=== PATIENT | male | born 1985 | race Caucasian/White ===

== ENCOUNTER 2017-08-26 00:55 | Emergency (ER) | payer OTHER, SELFPAY ==
[2017-08-26 01:07] VITALS: BP 124/74; PULSE 121; RESP 20; TEMP 37.1; O2SAT 98; BMI 21.7
[2017-08-26 01:41] LABS: Basophils # 0.1 K/mm3 (0-0.2); Basophils % 0.4 % (0.1-2.0); Eosinophils # 0.2 K/mm3 (0.0-0.4); Eosinophils % 1.6 % (0.1-12.0); Hematocrit 50.1 % (42.0-52.0); Hemoglobin 17.5 g/dL (14.1-18.0); Lymphocytes # 0.7 K/mm3 (0.7-4.5); Lymphocytes % 4.6 K/mm3 (10-50); Mean Corpuscular Hemoglobin 30.2 pg (27.0-31.2); Mean Corpuscular Volume 86.2 fl (80-94); Mean Platelet Volume 8.1 fl (7.4-10.4); Monocytes # 0.9 K/mm3 (0.1-1.0); Monocytes % 6.1 % (1.7-9.3); Neutrophils # 12.6 K/mm3 (1.8-7.8); Neutrophils % 87.4 % (37.0-80.0); Platelet Count 296 K/mm3 (142-424); Red Blood Count 5.81 M/mm3 (4.60-6.20); Red Cell Distribution Width 12.7 % (11.5-17.5); White Blood Count 14.4 K/mm3 (4.8-10.8)
[2017-08-26 01:42] LABS: MANUAL DIFFERENTIAL MANUAL DIFFERENTIAL (MANUAL DIFF)
--- NOTE | 2017-08-26 01:46 | HMH.EDNVD ---
ED Disposition Clinical Impression: Gastroenteritis, Dehydration Disposition: Home, Self-Care Condition on Discharge: Good Instructions: DI for Dehydration -- Adult, DI for Viral Gastroenteritis -- Adult Additional Instructions: Please drink plenty of fluids, find attached prescription for Zofran to be taken as needed for nausea, also take [id number] Imodium, as needed for diarrhea. Prescriptions: Ondansetron [Zofran 4mg ODT] 4 mg PO QIDP PRN #28 tab.rapdis PRN Reason: Nausea Time of Disposition: 01:46 - Critical Care Critical Care Time: No Attestation: On 08/26/17, the high probability of a clinically significant, sudden or life threatening deterioration of the following system(s) required my full and direct attention, intervention and personal management. The time I documented below is in addition to time spent performing reported procedures but includes the following listed in this critical care notation. Medical Decision Making - Medical Records Medical records reviewed: Yes: I reviewed the patient's medical records. Vital Signs: 08/26/17 01:07 08/26/17 03:01 Temperature 98.8 F 100.2 F H Temperature Source Oral Oral Pulse Rate 116 H Pulse Rate [Right Brachial] 121 H Respiratory Rate 20 18 Blood Pressure 102/61 Blood Pressure [Right Arm] 124/74 Blood Pressure Mean [Right Arm] 90 Blood Pressure Source Automatic Cuff Blood Pressure Source [Right Arm] Automatic Cuff Blood Pressure Position Supine Blood Pressure Position [Right Arm] Supine 02 Sat by Pulse Oximetry 98 Oxygen Delivery Method Room Air Room Air - Lab Data Lab results reviewed: Yes: I reviewed the patient's lab results. Lab Results 08/26/17 01:20: WBC 14.4 H, RBC 5.81, Hgb 17.5, Hct 50.1, MCV 86.2, MCH 30.2, MCHC 35.0, RDW 12.7, Plt Count 296, MPV 8.1, Neut % (Auto) 87.4 H, Lymph % (Auto) 4.6 L, [place] % (Auto) 6.1, Eos % (Auto) 1.6, Baso % (Auto) 0.4, Neut # (Auto) 12.6 H, Lymph # (Auto) 0.7, [place] # (Auto) 0.9, Eos # (Auto) 0.2, Baso # (Auto) 0.1, Total Counted 100, Neutrophils % (Manual) 88 H, Lymphocytes % (Manual) 8 L, Monocytes % (Manual) 4, Platelet Estimate Normal, RBC Morphology Normal 08/26/17 01:20: Sodium 142, Potassium 3.9, Chloride 104, Carbon Dioxide 26, Anion Gap 15.9 H, BUN 14, Creatinine 1.35 H, Estimated Creat Clear 81, Estimated GFR 61, Est GFR ( Amer) 74, Glucose 134 H, Calcium 9.7, Total Bilirubin 0.9, AST 15, ALT 31, Alkaline Phosphatase 101, Total Protein 8.4 H, Albumin 5.1 H, Globulin 3.3 H, Albumin/Globulin Ratio 1.5, Amylase 59, Lipase 80 Result diagrams: 08/26/17 01:20 08/26/17 01:20 Orders (Tests/Meds): ED MEDICATIONS Discontinued Medications Generic Name Dose Route Start Last Admin Trade Name Freq PRN Reason Stop Dose Admin Diphenoxylate HCl/Atropine 5 mg 08/26/17 01:12 08/26/17 02:45 Lomotil 2.5mg Tablet PO 08/26/17 01:13 5 mg ONCE ONE Administration Lactated Ringer's 1,000 mls @ 999 mls/hr 08/26/17 01:15 08/26/17 01:23 Lactated Ringer's 1000 Ml Bag IV 08/26/17 02:15 999 mls/hr .Q1H1M NASREEN Administration Lactated Ringer's 1,000 mls @ 999 mls/hr 08/26/17 02:15 08/26/17 02:46 Lactated Ringer's 1000 Ml Bag IV 08/26/17 03:15 999 mls/hr .Q1H1M NASREEN Administration Loperamide HCl 4 mg 08/26/17 01:12 08/26/17 02:46 Imodium 2 Mg Capsule PO 08/26/17 01:13 4 mg ONCE ONE Administration Ondansetron HCl 4 mg 08/26/17 01:11 08/26/17 01:23 Zofran 4mg/2ml Vial IV 08/26/17 01:12 4 mg ONCE ONE Administration - Noé Inquiry Pt receiving controlled substance: No - Reevaluation(s) Time: 01:40 Reevaluation #1: Upon re-evaluation the patient appears medically stable, in no acute distress, denies any abdominal pain, able to toerrate PO fluids and crackers/peanut butter as well. Nausea/Vomiting/Diarrhea HPI - General Chief complaint: Nausea/Vomiting/Diarrhea Stated complaint: vomiting,diarrhea,stomach pain Mode of Arrival
[2017-08-26 01:53] LABS: Alanine Aminotransferase 31 U/L (12-78); Albumin Level 5.1 gm/dL (3.4-5.0); Albumin/Globulin Ratio 1.5 (1.1-1.8); Alkaline Phosphatase 101 U/L (46-116); Amylase 59 U/L (25-125); Anion Gap 15.9 mEq/L (5-15); Aspartate Amino Transferase 15 U/L (15-37); Bilirubin,Total 0.9 mg/dL (0.2-1.0); Blood Urea Nitrogen 14 mg/dL (7-18); Calcium 9.7 mg/dL (8.5-10.1); Carbon Dioxide 26 mmol/L (21.0-32.0); Chloride 104 mmol/L (98-107); Creatinine Clearance Estimated 81 mL/min (0-300); Creatinine,Serum 1.35 mg/dL (0.70-1.30); Estimated Glomerular Filt Rate 61 ml/min (>60); GFR (African American) 74 ML/MIN (>60); Globulin 3.3 gm/dl (1.3-3.2); Glucose 134 mg/dL (74-106); Lipase 80 u/L (73-393); Potassium 3.9 mmoL/L (3.5-5.1); Sodium 142 mmol/L (136-145); Total Protein,Serum 8.4 gm/dL (6.4-8.2)
[2017-08-26 03:01] VITALS: BP 102/61; PULSE 116; RESP 18; TEMP 37.9; O2SAT 100
[2017-08-26 06:27] LABS: Lymphocytes % 8 % (10-50); Monocytes % 4 % (2-9); Neutrophils % 88 % (42-76); Platelet Estimate Normal; RBC Morphology Normal; Total Cells Counted 100
== END 2017-08-26 02:15 | disposition home or self-care (01) ==
PROVIDERS: Emergency Provider Emergency Medicine; Family Provider Family Medicine
DX: K52.9 Noninfective gastroenteritis and colitis, unspecified (principal); E86.0 Dehydration; F17.210 Nicotine dependence, cigarettes, uncomplicated
CPT/HCPCS: 80053; 82150; 83690; 85007; 85025; 96365; 96366; 96375; 99281; J2405

== ENCOUNTER 2020-04-28 15:30 | Emergency (ER) | payer OTHER, BC, SELFPAY ==
[2020-04-28 15:32] VITALS: BP 144/82; PULSE 89; RESP 17; TEMP 36.8; O2SAT 100
--- NOTE | 2020-04-28 15:49 | CT_ITS ---
PROCEDURE: CT ABDOMEN PELVIS W CON CLINICAL INDICATION: abd pain Left-sided abdominal pain COMPARISON: No exams were available for comparison TECHNIQUE: IV Contrast: 75ML OPTIRAY 350 Oral Contrast None Axial images obtained with sagittal and coronal reformats. All CT scans at the facility use one or more dose reduction, viz: automated exposure control, ma/kV adjustment per patient size (including targeted exams where dose is matched to indication, i.e. head), or iterative reconstruction technique. FINDINGS: LOWER THORAX: Are mild atelectatic changes in the lung bases. There may be some coronary artery calcifications of the PDA. ABDOMEN & PELVIS: There is a nonspecific 7 mm hypodensity in the anterior segment of the right hepatic lobe superiorly too small to categorize. The spleen, adrenal glands, pancreas, and kidneys have an unremarkable appearance. No intestinal obstruction or free air. There is mild thickening of the descending and sigmoid colon. Unremarkable appendix. No pelvic mass or abnormal fluid collection. There is a small umbilical hernia which contains fat. No acute bony findings IMPRESSION: There is mild thickening of the descending and sigmoid colon. While this could be due to nondistention, colitis would be included in the differential diagnosis. Other nonacute findings as described above. Dictated by: Pepe Amor MD 04/28/2020 16:59 Pepe Amor MD in [place] 04/28/2020 16:59
[2020-04-28 16:00] LABS: Microscopic, Urine URINE MICROSCOPIC (MICROSCOPIC)
[2020-04-28 16:02] LABS: Appearance,Urine CLEAR (Clear); Bilirubin,Urine Negative (Negative); Blood, Urine Negative (Negative); Color,Urine YELLOW (Yellow); Glucose,Urine (UA) Negative (Negative); Ketones,Urine Negative (Negative); Leukocyte Esterase,Urine Negative (Negative); Nitrate,Urine Negative (Negative); PH,Urine 6.5 (5.0-8.5); Protein,Urine Negative (Negative); Specific Gravity, Urine 1.025 (1.005-1.030); Urobilinogen,Urine 0.2 EU/dl (0.2)
[2020-04-28 16:08] LABS: Chloride 104 mmol/L (98-107); Potassium 4.2 mmoL/L (3.5-5.1); Sodium 137 mmol/L (136-145)
[2020-04-28 16:10] LABS: Amylase 84 U/L (30-110)
[2020-04-28 16:11] LABS: Alanine Aminotransferase 18 U/L (12-78); Albumin Level 4.4 g/dl (3.5-5.0); Albumin/Globulin Ratio 1.8 (1.1-1.8); Alkaline Phosphatase 77 U/L (38-126); Anion Gap 9.2 mEq/L (5-15); Aspartate Amino Transferase 24 U/L (17-59); Bilirubin,Total 0.3 mg/dl (0.2-1.3); Blood Urea Nitrogen 14 mg/dl (9-20); Calcium 9.3 mg/dl (8.4-10.2); Carbon Dioxide 28 mmol/L (22.0-30.0); Creatinine Clearance Estimated 72 mL/min (50-200); Estimated Glomerular Filt Rate 63 ml/min (>60); GFR (African American) 76 ML/MIN (>60); Globulin 2.5 g/dL (1.3-3.2); Glucose 94 mg/dl (74-100); Lipase 94 U/L (23-300); Total Protein,Serum 6.9 g/dl (6.3-8.2)
--- NOTE | 2020-04-28 16:12 | HMH.EDABDPAI ---
ED Disposition Clinical Impression: Colitis Disposition: Home, Self-Care Condition on Discharge: Good Instructions: DI for Acute Abdomen Additional Instructions: Patient to return to the emergency department if fever/chills, intractable nausea/vomiting, or other new concerning symptoms. Please take p.o. Bentyl for gut spasms as needed. Immediately return to our emergency department if unable to secure follow-up with GI. Prescriptions: Dicyclomine HCl [Bentyl 10mg capsule] 10 mg PO TID PRN #14 cap PRN Reason: Gi Upset Transmission Status: Pending to [id number] Referrals: Violette Green APRN [Primary Care Provider] - - Critical Care Critical Care Time: No Attestation: On 04/28/20, the high probability of a clinically significant, sudden or life threatening deterioration of the following system(s) required my full and direct attention, intervention and personal management. The time I documented below is in addition to time spent performing reported procedures but includes the following listed in this critical care notation. Medical Decision Making - Medical Records Medical records reviewed: Yes: I reviewed the patient's medical records. - Noé Inquiry Pt receiving controlled substance: No Vital Signs: 04/28/20 15:32 Temperature 98.2 F Temperature Source Oral Pulse Rate [Right] 89 Respiratory Rate 17 Blood Pressure [Right Arm] 144/82 H Blood Pressure Mean [Right Arm] 102 02 Sat by Pulse Oximetry 100 - Lab Data Lab Results 04/28/20 15:53: Sodium 137, Potassium 4.2, Chloride 104, Carbon Dioxide 28, Anion Gap 9.2, BUN 14, Creatinine 1.30 H, Estimated Creat Clear 72, Estimated GFR 63, Est GFR ( Amer) 76, Glucose 94, Calcium 9.3, Total Bilirubin 0.3, AST 24, ALT 18, Alkaline Phosphatase 77, Total Protein 6.9, Albumin 4.4, Globulin 2.5, Albumin/Globulin Ratio 1.8, Amylase 84, Lipase 94 04/28/20 15:53: SARS-CoV-2 IgG Ab (Rapid) Negative, SARS-CoV-2 IgM Ab (Rapid) Negative 04/28/20 15:55: Urine Color Yellow, Urine Appearance Clear, Urine pH 6.5, Ur Specific [place] 1.025, Urine Protein Negative, Urine Glucose (UA) Negative, Urine Ketones Negative, Urine Blood Negative, Urine Nitrate Negative, Urine Bilirubin Negative, Urine Urobilinogen 0.2, Ur Leukocyte Esterase Negative, Urine RBC Occasional, Urine WBC 3-5, Ur Squamous Epith Cells 3-5, Urine Bacteria None Result diagrams: 04/28/20 15:53 Orders (Tests/Meds): ED MEDICATIONS Discontinued Medications Generic Name Dose Route Start Last Admin Trade Name Ashley PRN Reason Stop Dose Admin Ioversol 75 ml 04/28/20 16:22 04/28/20 16:23 Ioversol-350 (74%) 100ml Vial IV 04/28/20 16:23 75 ml ONCE ONE Administration Protocol Sodium Chloride 10 ml 04/28/20 16:22 04/28/20 16:23 Sodium Chloride 0.9% 10ml Syr (Rad Only) IV 04/28/20 16:23 10 ml ONCE ONE Administration Medical Decision Narrative: Patient healthy 34-year-old male presenting with acute on chronic abdominal pain with some intermittent diarrhea. At this time differential diagnosis does include colitis, inflammatory versus diverticulitis versus nephrolithiasis/ureterolithiasis versus gastroenteritis. Patient has been worked up in the past but is pending colonoscopy with GI. My suspicion is the patient may be suffering from inflammatory bowel disease as this issues been going on for several months. No significant weight loss. Electrolytes will be checked to ensure no electrolyte derangement and also basic lab work to ensure no hematologic derangement. I do believe CT imaging is indicated to ensure no acute surgical process as patient does have pain localized to left lower quadrant. Patient agrees. CT scan demonstrates no acute surgical process but he does have thickened colon sigmoid/descending consistent with his physical exam. Other lab work unremarkable. No actionable labs. At this time, again suspicion for inflammatory bowel disease as patient
[2020-04-28 16:21] LABS: RBC,Urine Occasional #/hpf (0-3)
[2020-04-28 16:31] LABS: Coronavirus 19 IgG Antibody Negative (Negative); Coronavirus 19 IgM Antibody Negative (Negative)
[2020-04-28 17:29] LABS: Basophils # 0.1 K/mm3 (0-0.2); Basophils % 1.1 % (0.1-2.0); Eosinophils # 0.4 K/mm3 (0.0-0.4); Eosinophils % 4.1 % (0.1-12.0); Hematocrit 45.1 % (42.0-52.0); Hemoglobin 14.8 g/dL (14.1-18.0); Lymphocytes # 2.2 K/mm3 (0.7-4.5); Mean Corpuscular HGB Conc 32.9 g/dL (31.8-35.4); Mean Corpuscular Hemoglobin 30.1 pg (27.0-31.2); Mean Corpuscular Volume 91.2 fl (80-94); Mean Platelet Volume 7.8 fl (7.4-10.4); Monocytes # 0.6 K/mm3 (0.1-1.0); Monocytes % 6.5 % (1.7-9.3); Neutrophils # 6.3 K/mm3 (1.8-7.8); Neutrophils % 65.2 % (37.0-80.0); Platelet Count 353 K/mm3 (142-424); Red Blood Count 4.94 M/mm3 (4.60-6.20); Red Cell Distribution Width 12.9 % (11.5-17.5); White Blood Count 9.6 K/mm3 (4.8-10.8)
[2020-04-28 17:49] VITALS: BP 129/87; PULSE 87; RESP 18; TEMP 36.8; O2SAT 100
== END 2020-04-28 17:50 | disposition home or self-care (01) ==
PROVIDERS: Emergency Provider Emergency Medicine; PCP Nurse Practitioner Family
DX: K52.9 Noninfective gastroenteritis and colitis, unspecified (principal); F17.210 Nicotine dependence, cigarettes, uncomplicated; Z01.84 Encounter for antibody response examination
CPT/HCPCS: 74177; 80053; 81001; 82150; 83690; 85025; 86328; 99283; Q9967

== ENCOUNTER → 2020-05-27 16:48 | Outpatient (CLI) | payer OTHER, BC, SELFPAY ==
[2020-05-27 21:27] LABS: Coronavirus 19 IgG Antibody Negative (Negative)
[2020-05-27 21:28] LABS: Coronavirus 19 IgM Antibody Negative (Negative)
== END ==
PROVIDERS: Visit Provider Surgery
DX: Z01.818 Encounter for other preprocedural examination (principal); Z12.11 Encounter for screening for malignant neoplasm of colon
CPT/HCPCS: 36415; 86328

== ENCOUNTER 2020-05-29 07:20 | Day surgery (SDC) | payer OTHER, BC, SELFPAY ==
[2020-05-27 13:10] VITALS: BMI 21.7
[2020-05-29 07:55] VITALS: BP 113/75; PULSE 82; RESP 18; TEMP 36.3; O2SAT 98
[2020-05-29 09:37] VITALS: O2SAT 98
--- NOTE | 2020-05-29 09:39 | HMH.ANESCL ---
[facility] Anesthesia Checklist - Structural Data Admitted From: Home Planned Operative Procedure/s: colonoscopy Consent for Planned Operative Procedure(s) Verified: Yes - Airway Assessment C-Spine Mobility Assessed: Yes TMJ Mobility Assessed: Yes Dentition: Good Dentition - Neurological Assessment Level of Consciousness: Awake, Alert, Appropriate - Anesthesia Plan Anesthesia Risk discussed: Yes Anesthesia Plan: Verified ASA Class: I Anesthesia Type: MAC [facility] History I have reviewed the patient's past medical history: Yes Medical History: Denies:: Cancer, Diabetes Mellitus Type 1, Diabetes Mellitus Type 2, Internal Pacemaker, MRSA, Seizures *Have you ever received a pneumonia vaccine?: No *Have you received a flu vaccine this season?: No Anesthesia experience/problems:: none Other Surgeries: Yes: No Previous Surgery. No: Pacemaker Amputation: No Fractures: No - *Social History Last grade of school completed: Some college Smoking Status: Current every day smoker Tobacco Type: cigarettes # Packs/Day (cigarettes): 1 #Yrs smoked (if former smoker): 11 Alcohol Intake: current Alcohol Intake Frequency:: a few times a week Substance Use Type: denies use *Occupational Status:: other Housing: house Household Members: family *Travel in the last 8 weeks: None Family Hx:: Hyperlipidemia, Cancer, Diabetes
[2020-05-29 10:10] VITALS: BP 92/47; PULSE 71; RESP 18; TEMP 36.3; O2SAT 95
--- NOTE | 2020-05-29 10:11 | HMH.SCOPE ---
- Procedure: Date: 05/29/20 Patient Date of :: 1985 Procedure Performed:: Colonoscopy with polypectomy and biopsy Indications:: Diarrhea Colitis Performing Provider:: Nakul Perez MD Referring Provider:: . Sedation:: Monitored anesthesia care Procedure:: After informed consent was obtained the patient was taken to the endoscopy suite. Sedation ensued after the patient was transferred to the left lateral decubitus position. Pulse, blood pressure, and oxygen saturation were monitored throughout the procedure. Digital rectal exam revealed no significant abnormality. The colonoscope was placed in position. The entire colon was evaluated. The colonoscope was carefully removed and the patient was transferred to recovery in stable condition. Please see findings and specimens below for detail. Findings:: Bowel preparation poor Multiple complex polyps Focal inflammation of cecum Specimens:: Fluid obtained for diarrhea panel Cecal biopsy Pedunculated complex polyp at 20 (snare) Pedunculated complex polyp at 15 cm (snare) Pedunculated lobulated polyp at 10 cm Very large pedunculated polyp at 7 cm (snare) Recommendations:: Follow-up diarrhea panel Follow-up pathology Likely repeat colonoscopy in 6-12 months secondary to size/nature/number of polyps (particularly at young age) and poor bowel preparation Consider gastroenterology consultation if diarrhea panel negative (if gastroenterology consult ordered... timing of repeat colonoscopy will be deferred to their service) Complications:: No immediate Estimated blood obtained (mL): 1
[2020-05-29 10:20] VITALS: BP 90/49; PULSE 64; RESP 18; TEMP 36.3; O2SAT 96
[2020-05-29 10:26] LABS: Adenovirus F 40/41, stool Not Detected (NotDetected); Astrovirus Not Detected (NotDetected); Campylobacter Not Detected (NotDetected); Cryptosporidium Not Detected (NotDetected); Cyclospora Cayetanesis Not Detected (NotDetected); Entamoeba histolytica Not Detected (NotDetected); Enteroaggregative E coli Not Detected (NotDetected); Enteropathogenic E coli Not Detected (NotDetected); Enterotoxigenic E coli Not Detected (NotDetected); Giardia lamblia Not Detected (NotDetected); Norovirus Not Detected (NotDetected); Plesimonas Shigalloides, PCR Not Detected (NotDetected); Rotavirus A Not Detected (NotDetected); Salmonella, PCR Not Detected (NotDetected); Sapovirus Not Detected (NotDetected); Shiga-like toxin E coli Not Detected (NotDetected); Shigella Enterovasive E coli Not Detected (NotDetected); Vibrio Cholerae Not Detected (NotDetected); Vibrio, PCR Not Detected (NotDetected); Yersinia Entercolitica, PCR Not Detected (NotDetected)
[2020-05-29 10:30] VITALS: BP 104/67; PULSE 61; RESP 18; TEMP 36.3; O2SAT 96
[2020-05-29 10:45] VITALS: BP 123/65; PULSE 64; RESP 18; TEMP 36.3; O2SAT 96
[2020-06-03 13:11] LABS: Clostridium Difficile A/B, PCR Detected (NotDetected)
== END 2020-05-29 10:45 | disposition home or self-care (01) ==
LOC: OUTP 07:21
PROVIDERS: PCP Internal Medicine Adolescent Medicine; Visit Provider Surgery
PROC: 0DJD8ZZ Inspection of Lower Intestinal Tract, Via Natural or Artificial Opening Endoscopic (ICD-10-PCS; CPT 45385; principal; 2020-05-29 09:30)
DX: K63.5 Polyp of colon (principal); K63.9 Disease of intestine, unspecified; K52.9 Noninfective gastroenteritis and colitis, unspecified
CPT/HCPCS: 45385; 45380; 87507

== ENCOUNTER → 2020-07-30 10:01 | Outpatient (CLI) | payer BC, SELFPAY ==
[2020-07-30 10:33] LABS: Basophils # 0.1 K/mm3 (0-0.2); Eosinophils # 0.3 K/mm3 (0.0-0.4); Eosinophils % 3.4 % (0.1-12.0); Hemoglobin 16.6 g/dL (14.1-18.0); Lymphocytes # 2.6 K/mm3 (0.7-4.5); Lymphocytes % 28.3 % (10-50); Mean Corpuscular HGB Conc 33.1 g/dL (31.8-35.4); Mean Corpuscular Hemoglobin 30.8 pg (27.0-31.2); Mean Corpuscular Volume 93.2 fl (80-94); Monocytes # 0.5 K/mm3 (0.1-1.0); Monocytes % 5.4 % (1.7-9.3); Neutrophils # 5.7 K/mm3 (1.8-7.8); Platelet Count 361 K/mm3 (142-424); Red Blood Count 5.37 M/mm3 (4.60-6.20); Red Cell Distribution Width 13.5 % (11.5-17.5); White Blood Count 9.1 K/mm3 (4.8-10.8)
[2020-07-30 12:23] LABS: Anion Gap 11.7 mEq/L (5-15); Blood Urea Nitrogen 10 mg/dl (9-20); Carbon Dioxide 30 mmol/L (22.0-30.0); Chloride 101 mmol/L (98-107); Estimated Glomerular Filt Rate 111 ml/min (>60); GFR (African American) 134 ML/MIN (>60); Glucose 70 mg/dl (74-100); Potassium 4.7 mmoL/L (3.5-5.1); Sodium 138 mmol/L (136-145)
== END ==
PROVIDERS: Visit Provider Surgery
DX: A04.72 Enterocolitis due to Clostridium difficile, not specified as recurrent (principal)
CPT/HCPCS: 36415; 80048; 85025

== ENCOUNTER → 2020-09-17 09:48 | Outpatient (CLI) | payer BC, SELFPAY ==
[2020-09-17 11:52] LABS: Coronavirus 19 IgG Antibody Negative (Negative); Coronavirus 19 IgM Antibody Negative (Negative)
== END ==
PROVIDERS: Visit Provider Surgery
DX: Z01.818 Encounter for other preprocedural examination (principal); Z20.822 Contact with and (suspected) exposure to COVID-19; Z12.11 Encounter for screening for malignant neoplasm of colon; Z86.010 Personal history of colon polyps
CPT/HCPCS: 36415; 86328

== ENCOUNTER 2020-09-18 08:41 | Day surgery (SDC) | payer BC, SELFPAY ==
[2020-09-16 10:19] VITALS: BMI 21.7
[2020-09-18 09:38] VITALS: BP 109/68; PULSE 83; RESP 18; TEMP 36.2; O2SAT 100
[2020-09-18 10:18] VITALS: O2SAT 100
--- NOTE | 2020-09-18 10:19 | HMH.ANESCL ---
[facility] Anesthesia Checklist - Patient Identification Patient Identification: Verbal (Name & ) - Structural Data Admitted From: Home Planned Operative Procedure/s: colonoscopy Consent for Planned Operative Procedure(s) Verified: Yes Verified Documents: Surgical Consent - Cardiovascular Assessment Heart Sounds: S1 & S2 Pulse Rhythm: Regular - Airway Assessment C-Spine Mobility Assessed: Yes TMJ Mobility Assessed: Yes Dentition: Good Dentition - Neurological Assessment Level of Consciousness: Awake - Anesthesia Plan Anesthesia Risk discussed: Yes ASA Class: II Anesthesia Type: MAC [facility] History I have reviewed the patient's past medical history: Yes Medical History: Denies:: Cancer, Diabetes Mellitus Type 1, Diabetes Mellitus Type 2, Internal Pacemaker, MRSA, Seizures *Have you ever received a pneumonia vaccine?: No *Have you received a flu vaccine this season?: No Anesthesia experience/problems:: none Other Surgeries: Yes: No Previous Surgery, Colonoscopy. No: Pacemaker Amputation: No Fractures: No - *Social History Last grade of school completed: High school graduate Smoking Status: Current every day smoker Tobacco Type: cigarettes # Packs/Day (cigarettes): 1 #Yrs smoked (if former smoker): 11 Alcohol Intake: current Alcohol Intake Frequency:: a few times a week Substance Use Type: denies use *Occupational Status:: other Housing: house Household Members: family *Travel in the last 8 weeks: None Family Hx:: Hyperlipidemia, Cancer, Diabetes
[2020-09-18 10:47] VITALS: BP 92/60; PULSE 76; RESP 16; TEMP 36.3; O2SAT 98
--- NOTE | 2020-09-18 10:49 | HMH.SCOPE ---
- Procedure: Date: 09/18/20 Patient Date of :: 1985 Procedure Performed:: Colonoscopy with polypectomy by means other than snare Indications:: History of colon polyps Performing Provider:: Nakul Perez MD Referring Provider:: . Sedation:: Monitored anesthesia care Procedure:: After informed consent was obtained the patient was taken to the endoscopy suite. Sedation ensued after the patient was transferred to the left lateral decubitus position. Pulse, blood pressure, and oxygen saturation were monitored throughout the procedure. Digital rectal exam revealed no significant abnormality. The colonoscope was placed in position. The entire colon was evaluated. The colonoscope was carefully removed and the patient was transferred to recovery in stable condition. Please see findings and specimens below for detail. Findings:: Bowel preparation relatively fair Moderate spasticity Hyperplastic-appearing polyp at 12 cm Specimens:: Hyperplastic-appearing polyp at 12 cm Recommendations:: Timing of repeat colonoscopy is pending pathology but likely be around 1-2 years secondary to history of multiple complex adenomatous polyps diagnosed at an early age . Complications:: No immediate Estimated blood obtained (mL): 1
[2020-09-18 10:57] VITALS: BP 100/70; PULSE 76; RESP 18; TEMP 36.3; O2SAT 100
[2020-09-18 11:07] VITALS: BP 107/76; PULSE 66; RESP 18; TEMP 36.3; O2SAT 100
== END 2020-09-18 11:07 | disposition home or self-care (01) ==
LOC: OUTP 08:42
PROVIDERS: PCP Internal Medicine Adolescent Medicine; Visit Provider Surgery
PROC: 0DJD8ZZ Inspection of Lower Intestinal Tract, Via Natural or Artificial Opening Endoscopic (ICD-10-PCS; CPT 45380; principal; 2020-09-18 10:30)
DX: K62.1 Rectal polyp (principal); K58.0 Irritable bowel syndrome with diarrhea; Z86.010 Personal history of colon polyps; Z86.19 Personal history of other infectious and parasitic diseases; Z72.0 Tobacco use; Z83.3 Family history of diabetes mellitus; Z80.9 Family history of malignant neoplasm, unspecified; Z83.438 Family history of other disorder of lipoprotein metabolism and other lipidemia
CPT/HCPCS: 45380

== ENCOUNTER 2020-11-22 10:17 | Emergency (ER) | payer BC, SELFPAY ==
[2020-11-22 10:54] VITALS: BP 103/72; PULSE 72; RESP 17; TEMP 36.2; O2SAT 99; BMI 21.7
[2020-11-22 10:59] VITALS: BP 103/72; PULSE 72; RESP 17; TEMP 36.2; O2SAT 99
[2020-11-22 10:59] LABS: UTC Strep Screen (Rapid) Negative (Negative)
--- NOTE | 2020-11-22 11:24 | HMH.EDUTC ---
[facility] Clinical Impression: Pharyngitis Qualifiers: Pharyngitis/tonsillitis etiology: unspecified etiology Qualified Code(s): J02.9 - Acute pharyngitis, unspecified Disposition: Home, Self-Care Condition on Discharge: Good Instructions: DI for Pharyngitis/Tonsillopharyngitis -- Adult, Preventing the Spread of Coronavirus Discharge Instructions Additional Instructions: Drink plenty of fluids. Take tylenol for pain or fever. Return if you begin to have difficulty breathing. Follow up with your regular doctor. GO TO THE ER FOR ANY WORSENING SYMPTOMS Prescriptions: Benzonatate [Tessalon Perle 100mg Cap] 100 mg PO TIDP PRN #30 cap PRN Reason: Cough Transmission Status: Received by [id number] Azithromycin [Z-Yaniv 250mg Tab*] 250 mg PO UD DOSE PK #6 tab Transmission Status: Received by [id number] Referrals: Charlie Chaparro MD [Primary Care Provider] - Time of Disposition: 11:44 Medical Decision Making - Medical Records Medical records reviewed: No: I reviewed the patient's medical records. - Noé Inquiry Pt receiving controlled substance: No Vital Signs: 11/22/20 10:54 11/22/20 10:59 Temperature 97.2 F L 97.2 F L Temperature Source Tympanic Pulse Rate 72 Pulse Rate [Right] 72 Respiratory Rate 17 17 Blood Pressure 103/72 L Blood Pressure [Right Arm] 103/72 L Blood Pressure Mean [Right Arm] 82 Blood Pressure Source [Right Arm] Automatic Cuff Blood Pressure Position [Right Arm] Sitting 02 Sat by Pulse Oximetry 99 Oxygen Delivery Method Room Air - Lab Data Lab results reviewed: Yes: I reviewed the patient's lab results. Lab Results 11/22/20 10:54: Strep Scn Rapid Clinic Negative Orders (Tests/Meds): ORDERS Category Date Time Status Strep Screen Confirmation Stat Micro 11/22/20 10:54 [place] [facility] [place] - General Stated complaint: swollen lympnodes, runny nose, sore throat Time Seen by Provider: 11/22/20 11:24 Mode of Arrival: Ambulatory Source of Information: Patient Limitations: No Limitations Description of Symptoms (Recalled from Triage Doc. by RN): Runny nose, itchy throat, and swollen lympnodes HEENT Symptoms (Recalled from RN notes): No Resp Symptoms (Recalled from RN notes): Yes Skin Symptoms (Recalled from RN notes): No MS Symptoms (Recalled from RN notes): No Functional Status (Recalled from RN notes): wnl - History of Present Illness Provider Complaint: He states that he has had sore throat and swollen lymph nodes in his neck for the past 3 days. He denies any known exposure to covid. - Related Data Previous Rx's Medication Instructions Recorded Azithromycin [Z-Yaniv 250mg Tab*] 250 mg PO UD DOSE PK #6 tab 11/22/20 Benzonatate [Tessalon Perle 100mg 100 mg PO TIDP PRN #30 cap 11/22/20 Cap] Allergies Allergy/AdvReac Type Severity Reaction Status Date / Time No Known Allergies Allergy Verified 11/22/20 11:04 - Worker's Comp Is this a Worker's Comp case?: No [facility] History - Hepatitis A Screen Drug use history?: No High risk sexual behaviors?: No History of sexually transmitted infection?: No Currently employed?: No Childcare worker?: No Do you have indoor plumbing?: Yes Do you have electricity?: Yes Attestation statement:: This patient has been screened for Hepatitis A risk factors. I have reviewed the patient's past medical history: Yes Medical History: Denies:: Cancer, Diabetes Mellitus Type 1, Diabetes Mellitus Type 2, Internal Pacemaker, MRSA, Seizures Other Surgeries: Yes: No Previous Surgery, Colonoscopy. 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
== END 2020-11-22 11:54 | disposition home or self-care (01) ==
PROVIDERS: Emergency Provider Nurse Practitioner Family; PCP Internal Medicine Adolescent Medicine
DX: J02.9 Acute pharyngitis, unspecified (principal); Z20.822 Contact with and (suspected) exposure to COVID-19
CPT/HCPCS: 87880; 99202; G0463; U0003

== ENCOUNTER → 2021-03-13 11:44 | Outpatient (CLI) | payer BC, SELFPAY ==
[2021-03-13 11:48] LABS: Adenovirus F 40/41, stool Not Detected (NotDetected); Astrovirus Not Detected (NotDetected); Campylobacter Not Detected (NotDetected); Clostridium Difficile A/B, PCR Not Detected (NotDetected); Cryptosporidium Not Detected (NotDetected); Cyclospora Cayetanesis Not Detected (NotDetected); Entamoeba histolytica Not Detected (NotDetected); Enteroaggregative E coli Not Detected (NotDetected); Enteropathogenic E coli Not Detected (NotDetected); Enterotoxigenic E coli Not Detected (NotDetected); Giardia lamblia Not Detected (NotDetected); Norovirus Not Detected (NotDetected); Plesimonas Shigalloides, PCR Not Detected (NotDetected); Rotavirus A Not Detected (NotDetected); Salmonella, PCR Not Detected (NotDetected); Sapovirus Not Detected (NotDetected); Shiga-like toxin E coli Not Detected (NotDetected); Shigella Enterovasive E coli Not Detected (NotDetected); Vibrio Cholerae Not Detected (NotDetected); Vibrio, PCR Not Detected (NotDetected); Yersinia Entercolitica, PCR Not Detected (NotDetected)
== END ==
PROVIDERS: Visit Provider Nurse Practitioner Family
DX: K52.9 Noninfective gastroenteritis and colitis, unspecified (principal)
CPT/HCPCS: 87507

== ENCOUNTER 2021-03-15 21:45 | Emergency (ER) | payer BC, SELFPAY ==
[2021-03-15 21:46] VITALS: BP 130/87; PULSE 81; RESP 22; TEMP 36.7; O2SAT 100; BMI 21.7
--- NOTE | 2021-03-15 21:55 | ECG_ITS ---
APPROVED REPORT Exam: Resting ECG HR:82 bpm ECG Measurements Heart Rate 82 AXES NM 154 P 71 QRSd 76 QRS 62 QT 340 T 59 QTc 397 Conclusion Normal sinus rhythm Normal ECG Electronically signed by : Charlie Chaparro MD 03/17/2021 12:09:24
--- NOTE | 2021-03-15 21:55 | XR_ITS ---
PROCEDURE INFORMATION: Exam: XR Chest Exam date and time: 03/15/2021 9:55 PM Age: 35 years old Clinical indication: Other: Palpatations; Additional info: Palpitations TECHNIQUE: Imaging protocol: XR of the chest. Views: 2 views. COMPARISON: CT ABDOMEN PELVIS W CON 04/28/2020 4:14 PM FINDINGS: Lungs: Unremarkable. No consolidation. Pleural spaces: Unremarkable. No pleural effusion. No pneumothorax. Heart/Mediastinum: Unremarkable. No cardiomegaly. Bones/joints: Unremarkable. IMPRESSION: No acute findings.
[2021-03-15 22:00] VITALS: BP 130/87; PULSE 71; RESP 17; TEMP 35; O2SAT 96
[2021-03-15 22:05] LABS: Coronavirus 19, PCR Not Detected (NotDetected); Influenza A, PCR Not Detected (NotDetected); Influenza B, PCR Not Detected (NotDetected)
[2021-03-15 22:06] LABS: Basophils # 0.1 K/mm3 (0-0.2); Basophils % 1.2 % (0.1-2.0); Eosinophils # 0.4 K/mm3 (0.0-0.4); Eosinophils % 4.2 % (0.1-12.0); Hematocrit 42.2 % (42.0-52.0); Hemoglobin 14.7 g/dL (14.1-18.0); Lymphocytes # 3.7 K/mm3 (0.7-4.5); Lymphocytes % 43.9 % (10-50); Mean Corpuscular HGB Conc 34.9 g/dL (31.8-35.4); Mean Corpuscular Hemoglobin 30.7 pg (27.0-31.2); Mean Corpuscular Volume 87.9 fl (80-94); Mean Platelet Volume 8.3 fl (7.4-10.4); Monocytes # 0.5 K/mm3 (0.1-1.0); Monocytes % 5.4 % (1.7-9.3); Neutrophils # 3.8 K/mm3 (1.8-7.8); Neutrophils % 45.3 % (37.0-80.0); Platelet Count 358 K/mm3 (142-424); Red Cell Distribution Width 12.8 % (11.5-17.5); White Blood Count 8.4 K/mm3 (4.8-10.8)
[2021-03-15 22:09] LABS: Alanine Aminotransferase 15 U/L (12-78); Albumin Level 4.4 g/dl (3.5-5.0); Alkaline Phosphatase 83 U/L (38-126); Aspartate Amino Transferase 25 U/L (17-59); Bilirubin,Direct 0.2 mg/dl (0.0-0.4); Bilirubin,Total 0.2 mg/dl (0.2-1.3)
[2021-03-15 22:10] LABS: Blood Urea Nitrogen 13 mg/dl (9-20); Calcium 9.4 mg/dl (8.4-10.2); Carbon Dioxide 27 mmol/L (22.0-30.0); Chloride 102 mmol/L (98-107); Creatinine Clearance Estimated 118 mL/min (50-200); Estimated Glomerular Filt Rate 96 ml/min (>60); GFR (African American) 116 ML/MIN (>60); Glucose 105 mg/dl (74-100); Sodium 138 mmol/L (136-145)
[2021-03-15 22:15] LABS: C-Reactive Protein 0.5 mg/L (0-4)
[2021-03-15 22:28] LABS: Erythrocyte Sedimentation Rate 2 mm/hr (0-15)
[2021-03-15 22:29] LABS: Procalcitonin 0.035 ng/mL (0.0-2.0); T4 (Thyroxine) 8.8 ug/dl (5.53-11.0)
[2021-03-15 22:30] VITALS: BP 109/68; PULSE 63; RESP 17; O2SAT 99
--- NOTE | 2021-03-15 22:33 | HMH.EDARPALP ---
ED Disposition Clinical Impression: Palpitations Chest pain Qualifiers: Chest pain type: precordial pain Qualified Code(s): R07.2 - Precordial pain Disposition: Home, Self-Care Condition on Discharge: Good Instructions: DI for Palpitations Additional Instructions: see pcp for follow up Referrals: Charlie Chaparro MD [Primary Care Provider] - - Critical Care Critical Care Time: No Attestation: On 03/15/21, the high probability of a clinically significant, sudden or life threatening deterioration of the following system(s) required my full and direct attention, intervention and personal management. The time I documented below is in addition to time spent performing reported procedures but includes the following listed in this critical care notation. Medical Decision Making - Medical Records Medical records reviewed: Yes: I reviewed the patient's medical records. - Noé Inquiry Pt receiving controlled substance: No Vital Signs: 03/15/21 21:46 Temperature 98.1 F Temperature Source Oral Pulse Rate [Apical] 81 Respiratory Rate 22 Blood Pressure [Right Arm] 130/87 Blood Pressure Mean [Right Arm] 101 Blood Pressure Source [Right Arm] Automatic Cuff Blood Pressure Position [Right Arm] Sitting 02 Sat by Pulse Oximetry 100 Oxygen Delivery Method Room Air - Lab Data Lab results reviewed: Yes: I reviewed the patient's lab results. Lab Results 03/15/21 21:46: WBC 8.4, RBC 4.80, Hgb 14.7, Hct 42.2, MCV 87.9, MCH 30.7, MCHC 34.9, RDW 12.8, Plt Count 358, MPV 8.3, Neut % (Auto) 45.3, Lymph % (Auto) 43.9, Hall % (Auto) 5.4, Eos % (Auto) 4.2, Baso % (Auto) 1.2, Neut # (Auto) 3.8, Lymph # (Auto) 3.7, Hall # (Auto) 0.5, Eos # (Auto) 0.4, Baso # (Auto) 0.1, ESR 2 03/15/21 21:46: Sodium 138, Potassium 4.0, Chloride 102, Carbon Dioxide 27, Anion Gap 13.0, BUN 13, Creatinine 0.90, Estimated Creat Clear 118, Estimated GFR 96, Est GFR ( Amer) 116, Glucose 105 H, Calcium 9.4, Troponin I < 0.01, C-Reactive Protein 0.5, Procalcitonin 0.035, TSH 0.50, Thyroxine (T4) 8.8 03/15/21 21:46: SARS-CoV-2 (PCR) Not detected, Influenza A Untype (PCR) Not detected, Influenza Type B (PCR) Not detected 03/15/21 21:46: Total Bilirubin 0.2, Direct Bilirubin 0.2, Conjugated Bilirubin 0.0, Indirect Bilirubin 0.0, Unconjugated Bilirubin 0.0, AST 25, ALT 15, Alkaline Phosphatase 83, Total Protein 7.0, Albumin 4.4 Result diagrams: 03/15/21 21:46 03/15/21 21:46 Orders (Tests/Meds): ED MEDICATIONS Generic Name Dose Route Start Last Admin Trade Name Freq PRN Reason Stop Dose Admin Lactated Ringer's 1,000 mls @ 999 mls/hr 03/15/21 22:00 03/15/21 22:10 Lactated Ringer's 1000 Ml Bag IV 03/15/21 23:00 999 mls/hr .Q1H1M NASREEN Administration ORDERS Category Date Time Status Troponin I Q3H Lab 03/16/21 01:00 Ordered Troponin I Q3H Lab 03/16/21 04:00 Ordered - Radiology Data #1 Image(s): Chest Image Reviewed: Yes I have reviewed radiologist's interpretation Preliminary Findings: Normal/NAD - ECG Data Tracing #1 Normal Sinus Rhythm: Yes Ischemic changes: non-specific ST-T wave changes - JOHN Score for Non-Stemi Age of Patient: 30-39 years old Heart Rate: 70-89 bpm Systolic Blood Pressure: 120-139 mmhg Serum Creatinine: 0.80-1.19 mg/dl CHF Kill[place] Class: I-No CHF Other Risk Factors: None Non-Stemi Risk Score: 58 Medical Decision Narrative: stableexam and labs and ekg will place holter and refer to pcp Arrhythmia/Palpitations HPI - General Chief Complaint: Arrhythmia/Palpitations Stated Complaint: Chest tightnes Time Seen by Provider: 03/15/21 22:00 Mode of Arrival: Ambulatory Source of Information: Patient, Medical Record Limitations: No Limitations - History of Present Illness HPI narrative: episode of palpitations and has assoc chest pain - no syncope MD complaint: palpitations Onset (ago): hour(s) Duration: intermittent Severity: moderate Context: occurred during rest Associ
[2021-03-15 22:38] LABS: Troponin I < 0.01 ng/ml (0.00-0.034)
[2021-03-15 23:14] VITALS: BP 114/71; PULSE 64; RESP 21; O2SAT 97
[2021-03-15 23:15] VITALS: BP 132/72; PULSE 76; RESP 18; TEMP 36.8; O2SAT 98
== END 2021-03-15 23:20 | disposition home or self-care (01) ==
PROVIDERS: Emergency Provider Emergency Medicine; PCP Internal Medicine Adolescent Medicine
DX: R07.2 Precordial pain (principal); R00.2 Palpitations
CPT/HCPCS: 71046; 80048; 80076; 84145; 84436; 84443; 84484; 85025; 85651; 86140; 93005; 93225; 93226; 96365; 99283; U0003

== ENCOUNTER 2021-04-01 09:17 | Emergency (ER) | payer BC, SELFPAY ==
[2021-04-01 09:17] VITALS: BP 115/77; PULSE 70; RESP 16; TEMP 36.8; O2SAT 99; BMI 21.7
--- NOTE | 2021-04-01 09:17 | ECG_ITS ---
APPROVED REPORT Exam: Resting ECG HR:65 bpm ECG Measurements Heart Rate 65 AXES [place] 162 P 66 QRSd 72 QRS 54 QT 364 T 49 QTc 378 Conclusion Normal sinus rhythm Normal ECG Electronically signed by : Charlie Chaparro MD 04/01/2021 20:39:19
--- NOTE | 2021-04-01 09:32 | XR_ITS ---
PROCEDURE: XR CHEST 2V CLINICAL HISTORY: cp Chest pain COMPARISON: CR XR CHEST 2V from 03/15/2021 FINDINGS: The cardiomediastinal silhouette and pulmonary vascularity are within normal limits. The lungs are clear without infiltrates, suspicious nodules, or pleural effusions. No acute bony abnormalities. IMPRESSION: No change with no acute finding Dictated by: Pepe Amor MD 04/01/2021 09:52 Pepe Amor MD in [place] 04/01/2021 09:52
[2021-04-01 09:52] LABS: Basophils # 0.1 K/mm3 (0-0.2); Basophils % 1.2 % (0.1-2.0); Eosinophils # 0.3 K/mm3 (0.0-0.4); Hematocrit 44.4 % (42.0-52.0); Hemoglobin 15.2 g/dL (14.1-18.0); Lymphocytes # 2.4 K/mm3 (0.7-4.5); Lymphocytes % 31.5 % (10-50); Mean Corpuscular HGB Conc 34.3 g/dL (31.8-35.4); Mean Corpuscular Hemoglobin 30.8 pg (27.0-31.2); Mean Corpuscular Volume 89.7 fl (80-94); Mean Platelet Volume 7.9 fl (7.4-10.4); Monocytes # 0.5 K/mm3 (0.1-1.0); Monocytes % 6.1 % (1.7-9.3); Neutrophils # 4.4 K/mm3 (1.8-7.8); Neutrophils % 57.1 % (37.0-80.0); Platelet Count 330 K/mm3 (142-424); Red Blood Count 4.95 M/mm3 (4.60-6.20); Red Cell Distribution Width 12.5 % (11.5-17.5); White Blood Count 7.7 K/mm3 (4.8-10.8)
[2021-04-01 10:04] LABS: Anion Gap 11.2 mEq/L (5-15); Blood Urea Nitrogen 11 mg/dl (9-20); Carbon Dioxide 29 mmol/L (22.0-30.0); Chloride 104 mmol/L (98-107); Creatinine Clearance Estimated 132 mL/min (50-200); Estimated Glomerular Filt Rate 110 ml/min (>60); GFR (African American) 133 ML/MIN (>60); Glucose 92 mg/dl (74-100); Potassium 4.2 mmoL/L (3.5-5.1); Sodium 140 mmol/L (136-145)
[2021-04-01 10:16] LABS: Troponin I < 0.01 ng/ml (0.00-0.034)
[2021-04-01 10:30] VITALS: BP 113/64; PULSE 72; O2SAT 98
--- NOTE | 2021-04-01 10:54 | HMH.EDGENADL ---
ED Disposition Clinical Impression: Non-cardiac chest pain, Anxiety Disposition: Home, Self-Care Condition on Discharge: Good Additional Instructions: Discussed antianxiety medicine with your PCP. Referrals: Charlie Chaparro MD [Primary Care Provider] - 3 days Time of Disposition: 10:59 - Critical Care Critical Care Time: No Attestation: On 04/01/21, the high probability of a clinically significant, sudden or life threatening deterioration of the following system(s) required my full and direct attention, intervention and personal management. The time I documented below is in addition to time spent performing reported procedures but includes the following listed in this critical care notation. Medical Decision Making - Medical Records Medical records reviewed: Yes: I reviewed the patient's medical records. - Noé Inquiry Pt receiving controlled substance: No Vital Signs: 04/01/21 09:17 04/01/21 10:30 Temperature 98.3 F Temperature Source Oral Pulse Rate 72 Pulse Rate [Right Radial] 70 Respiratory Rate 16 Blood Pressure 113/64 Blood Pressure [Right Arm] 115/77 Blood Pressure Mean 78 Blood Pressure Mean [Right Arm] 89 Blood Pressure Source [Right Arm] Automatic Cuff Blood Pressure Position [Right Arm] Supine 02 Sat by Pulse Oximetry 99 98 Oxygen Delivery Method Room Air - Lab Data Lab results reviewed: Yes: I reviewed the patient's lab results. Lab Results 04/01/21 09:39: WBC 7.7, RBC 4.95, Hgb 15.2, Hct 44.4, MCV 89.7, MCH 30.8, MCHC 34.3, RDW 12.5, Plt Count 330, MPV 7.9, Neut % (Auto) 57.1, Lymph % (Auto) 31.5, [place] % (Auto) 6.1, Eos % (Auto) 4.0, Baso % (Auto) 1.2, Neut # (Auto) 4.4, Lymph # (Auto) 2.4, [place] # (Auto) 0.5, Eos # (Auto) 0.3, Baso # (Auto) 0.1 04/01/21 09:39: Sodium 140, Potassium 4.2, Chloride 104, Carbon Dioxide 29, Anion Gap 11.2, BUN 11, Creatinine 0.80, Estimated Creat Clear 132, Estimated GFR 110, Est GFR ( Amer) 133, Glucose 92, Calcium 9.0, Troponin I < 0.01 Result diagrams: 04/01/21 09:39 04/01/21 09:39 Orders (Tests/Meds): ORDERS Category Date Time Status Troponin I Q3H Lab 04/01/21 12:45 Ordered Troponin I Q3H Lab 04/01/21 15:45 Ordered - Radiology Data #1 Image(s): Chest Image Reviewed: Yes I reviewed the patient's radiology results Preliminary Findings: Normal/NAD - ECG Data Tracing #1 I reviewed this ECG and interpreted as documented below: Normal sinus rhythm, 65 bpm, no ST elevation or depression, normal intervals, no ectopy. ECG initial impression date: 04/01/21 ECG initial impression time: 09:18 Medical Decision Narrative: 35yo M evaluated for chest pain. Patient's in no acute distress on initial evaluation. His EKG is completely benign as above. Blood work is benign. When asking the patient if he has anxiety, he replies probably. Believe the patient be better served by started on antianxiolytic. Discussed this with the patient at bedside. Encouraged him to follow-up with his PCP for further management. General Adult HPI - General Chief complaint: Chest Pain Stated complaint: chest pain Time Seen by Provider: 04/01/21 10:30 Mode of Arrival: Ambulatory Limitations: No Limitations Description of Symptoms (Recalled from ER Triage Doc. by RN): Pt c/o chest tightness. Currently wearing a holter monitor. Pt states that he had an event of CP last night upon standing up and his left arm began to tingle and go numb. Pt states that he called his dog warden this am and they advised that he come to the ED for eval - History of Present Illness HPI narrative: 35yo M w/o significant past medical history reports emergency department secondary to chest pain and palpitations. He states he has been shortness of breath as well. He was evaluated here roughly 2 weeks ago with normal work-up. He complains of radiation to his left arm with numbness. Patient was seen by his PCP and started on propanolol twice daily but
--- NOTE | 2021-04-01 12:26 | PC.NURSE ---
Dr Arriaga on with Dr Caputo
[2021-04-01 12:35] VITALS: BP 113/75; PULSE 63; RESP 16; TEMP 36.8; O2SAT 94
== END 2021-04-01 12:35 | disposition home or self-care (01) ==
PROVIDERS: Emergency Provider Family Medicine; PCP Internal Medicine Adolescent Medicine
DX: R07.89 Other chest pain (principal); F41.9 Anxiety disorder, unspecified
CPT/HCPCS: 71046; 80048; 84484; 85025; 93005; 99283

== ENCOUNTER → 2021-09-12 10:52 | Outpatient (CLI) | payer BC, SELFPAY | PROVIDERS: PCP Internal Medicine Adolescent Medicine; Visit Provider Surgery | DX: Z01.812 Encounter for preprocedural laboratory examination (principal); Z11.52 Encounter for screening for COVID-19; Z12.11 Encounter for screening for malignant neoplasm of colon | CPT/HCPCS: C9803; U0003; U0005 ==

== ENCOUNTER 2022-03-07 08:01 | Emergency (ER) | payer BC, SELFPAY ==
[2022-03-07 08:15] VITALS: BP 96/67; PULSE 78; RESP 18; TEMP 37.4; O2SAT 97; BMI 22.1
--- NOTE | 2022-03-07 08:37 | HMH.EDUTC ---
[facility] [place] Disposition Clinical Impression: Encounter for laboratory testing for COVID-19 virus Disposition: Home, Self-Care Condition on Discharge: Good Instructions: DI for COVID-19 (Suspected or Confirmed ), Preventing the Spread of Coronavirus Discharge Instructions, DI for Fever (Symptom) -- Adult Additional Instructions: *Monitor Temp, Over the counter Motrin or Tylenol as directed/as needed Tylenol every 4 hours and Motrin every 6 hours (as long as your family doctor has told you that you can take it) for fever or pain. and straight to ER if unable to lower temp less than 101.0 after medication given *Warm salt water gargles may help to soothe the throat *Throat Lozenges *Warm fluids like tea with honey may help to soothe the throat *Sleep elevated *Humidifier/Vaporizer Follow up IMMEDIATELY for new or worsening symptoms or no Noticeable improvement over the next 48-72 hours. 911 for difficulty breathing or swallowing You were tested for today for COVID19 your test result should be back in the next 24-48 hours, you may check your results on the [facility] My Health Portal Make sure to take your Vitamins Vit. C Vit D and Zinc if you can take them Referrals: Charlie Chaparro MD [Primary Care Provider] - As needed Forms: Work/School Release Medical Decision Making - Noé Inquiry Pt receiving controlled substance: No Noé was queried for this patient: No Vital Signs: 03/07/22 08:15 Temperature 99.4 F Temperature Source Oral Pulse Rate [Right Brachial] 78 Respiratory Rate 18 Blood Pressure [Right Arm] 96/67 L Blood Pressure Mean [Right Arm] 76 Blood Pressure Source [Right Arm] Automatic Cuff Blood Pressure Position [Right Arm] Sitting 02 Sat by Pulse Oximetry 97 Oxygen Delivery Method Room Air Orders (Tests/Meds): ORDERS Category Date Time Status Covid-19 Nasal PCR ([facility]) Routine Lab 03/07/22 08:19 Received [facility] [place] HPI - General Stated complaint: runny nose, cough, body aches, covid test Time Seen by Provider: 03/07/22 08:38 Mode of Arrival: Ambulatory Source of Information: Patient Limitations: No Limitations Description of Symptoms (Recalled from Triage Doc. by RN): PATIENT C/O HEADACHE, BODY ACHES, RUNNY NOSE, AND VOMITING (ONCE) SINCE TUESDAY. HIS AND CHILDREN ARE POSITIVE FOR COVID HEENT Symptoms (Recalled from RN notes): Yes Resp Symptoms (Recalled from RN notes): No Skin Symptoms (Recalled from RN notes): No MS Symptoms (Recalled from RN notes): No Functional Status (Recalled from RN notes): WNL - History of Present Illness Provider Complaint: Patient states that several members of his family is positive for COVID State that now he is having symptoms States that he has been having body aches, chills, low grade fever and runny nose States that he thinks he may have COVID now too - Related Data Home Medications Medication Instructions Recorded Confirmed Escitalopram Oxalate [Lexapro] 20 mg PO DAILY 09/14/21 11/16/21 Propranolol HCl 10 mg PO BID 09/14/21 11/16/21 Sodium, Potassium,Mag Sulfates See Rx Instructions PO .COMPLEX 11/16/21 11/16/21 [Suprep Bowel Prep Kit] Allergies Allergy/AdvReac Type Severity Reaction Status Date / Time No Known Allergies Allergy Verified 11/16/21 08:46 - Worker's Comp Is this a Worker's Comp case?: No [facility] History - Hepatitis A Screen Attestation statement:: This patient has been screened for Hepatitis A risk factors. I have reviewed the patient's past medical history: Yes Medical History: Denies:: Cancer, Diabetes Mellitus Type 1, Diabetes Mellitus Type 2, Internal Pacemaker, MRSA, Seizures Other Surgeries: Yes: No Previous Surgery, Colonoscopy. 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
[2022-03-07 08:39] VITALS: BP 104/69; PULSE 78; RESP 18; TEMP 37.4; O2SAT 97
== END 2022-03-07 08:50 | disposition home or self-care (01) ==
PROVIDERS: Emergency Provider Nurse Practitioner; PCP Internal Medicine Adolescent Medicine
DX: U07.1 COVID-19 (principal); F17.210 Nicotine dependence, cigarettes, uncomplicated
CPT/HCPCS: 99212; C9803; G0463; U0003; U0005

== ENCOUNTER 2022-06-29 15:47 | Emergency (ER) | payer BC, SELFPAY ==
[2022-06-29 16:06] VITALS: BP 117/70; PULSE 69; RESP 16; TEMP 37.4; O2SAT 100; BMI 22.2
--- NOTE | 2022-06-29 16:18 | EXP.UTC ---
Discharge Plan Disposition Patient Disposition: Home, Self-Care Condition: Good Prescriptions Prescriptions: No Action propranolol 10 MG tablet 10 mg PO BID escitalopram oxalate 20 MG tablet 20 mg PO DAILY Rx Instructions: 1/2 tab daily for 1 wk, then full tab. sodium,potassium,mag sulfates 177 ML recon soln See Rx Instructions PO .COMPLEX Rx Instructions: DILUTE; drink full amount early evening before AND next morning at least 2 hr before procedure; follow w 960 mL water PO Referrals Follow up/Referrals: Charlie Chaparro MD [Primary Care Provider] - See instructions Activity Restrictions/Add. Instructions Additional Instructions/Restrictions: flu swab was sent to lab, call tomorrow for results. self isolate until test results are known to be negative No sign of a bacterial infection. Likely viral. Viruses can take 7-14 days to run their course. Nasal saline and bulb syringe or nose Evie to remove nasal drainage to help with nasal congestion. Hard to eat, drink, sleep with nasal congestion so important to keep this cleaned out. Monitor temp. Tylenol or Motrin as needed for pain or fever Encourage fluids, water, Gatorade, Powerade, Pedialyte if /toddler/child Warm salt water gargles Warm fluids Sore throat lozenges Sleep elevated Humidifier/vaporizer Follow-up immediately for new or worsening symptoms or no noticeable improvement over the next 48-72 hours. Clinical Impressions Clinical Impression: Upper respiratory infection, viral Stand Alone Forms Stand Alone Forms: Work/School Release Instructions Patient Instructions: DI for Viral Upper Respiratory Infection -- Adult Discharge ED Provider: Michelle ([facility] [facility] [place] General Stated complaint: sore throat, cough, MCKEON, congestion Mode of Arrival: Ambulatory Source of Information: Patient Limitations: No Limitations Time Seen by Provider: 06/29/22 16:18 Description of Symptoms (Recalled from Triage Doc. by RN): pt comes in with c/o sore throat, cough, congestion, headache. symptoms began last night HEENT Symptoms (Recalled from RN notes): Yes Resp Symptoms (Recalled from RN notes): Yes Skin Symptoms (Recalled from RN notes): No MS Symptoms (Recalled from RN notes): No Functional Status (Recalled from RN notes): n/a History of Present Illness Provider Complaint: 36 yr old male c/o sore throat, cough, congestion, headache. symptoms began last night has been exposed to flu Related Data Home Medications Medication Instructions Recorded Confirmed escitalopram oxalate 20 mg tablet 20 mg PO DAILY MOOD 09/14/21 11/16/21 propranolol 10 mg tablet 10 mg PO BID HR 09/14/21 11/16/21 sodium,potassium,mag sulfates 17.5 See Rx Instructions PO .COMPLEX 11/16/21 11/16/21 gram-3.13 gram-1.6 gram oral soln bowel prep Allergies Allergy/AdvReac Type Severity Reaction Status Date / Time No Known Allergies Allergy Verified 06/29/22 16:10 Worker's Comp Is this a Worker's Comp case?: No [facility] Disclaimer: The information contained in this section may have been updated after the patient was seen, as this information can be updated by other users. Social History , [employer]) Smoking Status: Current every day smoker tobacco type: cigarettes packs per day: 1 second hand exposure: No alcohol intake: never substance use type: denies use current occupational status: other Travel in the last 8 weeks: None household members: spouse housing: house current occupation: [employer] caffeine: Yes ROS Obtained: Yes All systems reviewed & no additional complaints except as documented Constitutional Constitutional: Reports system reviewed and no additional complaints, except as documented, Reports as per HPI, Reports body ache and Reports fever(s) Eyes Eyes: Reports system reviewed and no additional complaints, except as documented and Reports as per HPI ENT Ear
[2022-06-29 16:36] VITALS: BP 117/70; PULSE 69; RESP 16; TEMP 37.4
== END 2022-06-29 16:36 | disposition home or self-care (01) ==
PROVIDERS: Emergency Provider Nurse Practitioner Family; PCP Internal Medicine Adolescent Medicine
DX: J06.9 Acute upper respiratory infection, unspecified (principal)
CPT/HCPCS: 87275; 87276; 99212; G0463

== ENCOUNTER 2023-02-26 14:52 | Emergency (ER) | payer BC, SELFPAY ==
--- NOTE | 2023-02-26 14:58 | EXP.UTC ---
Discharge Plan Disposition Patient Disposition: Home, Self-Care Condition: Good Prescriptions Prescriptions: New prednisone 10 mg tablet 10 mg PO BID 3 Days Qty: 6 0RF amoxicillin [amoxicillin] 875 mg tablet 875 mg PO Q12H Qty: 20 0RF No Action propranolol 10 MG tablet 10 mg PO BID escitalopram oxalate 20 MG tablet 20 mg PO DAILY Rx Instructions: 1/2 tab daily for 1 wk, then full tab. Referrals Follow up/Referrals: Charlie Chaparro MD [Primary Care Provider] - See instructions Activity Restrictions/Add. Instructions Additional Instructions/Restrictions: Drink plenty of fluids. Take tylenol or ibuprofen for pain or fever. Take the medications as directed. Follow up with your regular doctor. GO TO THE ER FOR ANY WORSENING SYMPTOMS Clinical Impressions Clinical Impression: Pharyngitis Instructions Patient Instructions: Sore Throat, DI for Pharyngitis/Tonsillopharyngitis -- Adult Discharge ED Provider: Jordi Benitez [facility] General Stated complaint: sore throat Time Seen by Provider: 02/26/23 15:07 History of Present Illness Provider Complaint: He c/o sore throat and sinus congestion for the past 2 days. Related Data Home Medications Medication Instructions Recorded Confirmed escitalopram oxalate 20 mg tablet 20 mg PO DAILY Anxiety 09/14/21 02/26/23 propranolol 10 mg tablet 10 mg PO BID FAST HEART RATE 09/14/21 02/26/23 Previous Rx's Medication Instructions Recorded amoxicillin 875 mg tablet 875 mg PO Q12H #20 tabs 02/26/23 prednisone 10 mg tablet 10 mg PO BID 3 days #6 tabs 02/26/23 Allergies Allergy/AdvReac Type Severity Reaction Status Date / Time No Known Allergies Allergy Verified 06/29/22 16:10 [facility] Disclaimer: The information contained in this section may have been updated after the patient was seen, as this information can be updated by other users. Medical History Anxiety Brain venous angioma Depression Prostate disorder Social History Smoking Status: Current every day smoker tobacco type: cigarettes packs per day: 1 second hand exposure: No alcohol intake: never substance use type: denies use current occupational status: other Travel in the last 8 weeks: None household members: spouse housing: house current occupation: [employer] caffeine: Yes ROS Obtained: Yes All systems reviewed & no additional complaints except as documented Constitutional Constitutional: Reports chills and Reports fever(s) Eyes Eyes: Denies eye discharge ENT Ears, Nose, Mouth, and Throat: Reports as per HPI Cardiovascular Cardiovascular: Denies chest pain Respiratory Respiratory: Denies chest congestion and Reports cough Gastrointestinal Gastrointestingal: Reports nausea; Denies abdominal pain, constipation, cramping, diarrhea or vomiting Musculoskeletal Musculoskeletal: Denies arthralgias Integumentary/Breasts Skin/Breast: Denies rash Neurologic Neurologic: Denies paresthesias Physical Exam General General appearance: alert and in no apparent distress Head Head exam: atraumatic, normocephalic and normal inspection Eye Eye exam: Present normal appearance, PERRL and EOMI ENT ENT exam: Present mucous membranes moist and normal external ear exam Expanded ENT Exam TM/Canal exam: Bilateral TM: erythema and bulging Nose exam: Absent sinus tenderness Mouth exam: Present normal external inspection; Absent drooling Teeth exam: Present normal inspection Throat exam: Present tonsillar erythema, tonsillomegaly and tonsillar exudate Neck Neck exam: Present normal inspection, full ROM and trachea midline; Absent tenderness, meningismus or lymphadenopathy Chest Chest inspection: Present normal inspection and symmetric chest wall rise; Absent tenderness Respiratory Respiratory exam: Present normal lung sounds bilaterally; Ab
[2023-02-26 15:00] VITALS: BP 113/70; PULSE 81; RESP 18; TEMP 37.3; O2SAT 98; BMI 23.0
[2023-02-26 15:16] LABS: UTC Strep Screen (Rapid) Negative (Negative)
[2023-02-26 15:18] VITALS: BP 113/70; PULSE 81; RESP 18; TEMP 37.3; O2SAT 98
== END 2023-02-26 15:31 | disposition home or self-care (01) ==
PROVIDERS: Emergency Provider Nurse Practitioner Family; PCP Internal Medicine Adolescent Medicine
DX: J02.9 Acute pharyngitis, unspecified (principal); F17.210 Nicotine dependence, cigarettes, uncomplicated; F41.9 Anxiety disorder, unspecified; F32.A Depression, unspecified
CPT/HCPCS: 87880; 99212; 99214; G0463

== ENCOUNTER 2023-07-22 15:38 | Outpatient (CLI) | payer OTHER, SELFPAY ==
[2023-07-22 16:20] LABS: Basophils # 0.1 K/mm3 (0-0.2); Eosinophils # 0.2 K/mm3 (0.0-0.4); Hematocrit 48.6 % (42.0-52.0); Hemoglobin 16.5 g/dL (14.1-18.0); Lymphocytes # 2.6 K/mm3 (0.7-4.5); Lymphocytes % 34.8 % (10-50); Mean Corpuscular Hemoglobin 30.5 pg (27.0-31.2); Mean Corpuscular Volume 89.5 fl (80-94); Mean Platelet Volume 8.5 fl (7.4-10.4); Monocytes # 0.5 K/mm3 (0.1-1.0); Monocytes % 6.3 % (1.7-9.3); Neutrophils # 4.2 K/mm3 (1.8-7.8); Neutrophils % 54.9 % (37.0-80.0); Platelet Count 369 K/mm3 (142-424); Red Blood Count 5.43 M/mm3 (4.60-6.20); Red Cell Distribution Width 13.3 % (11.5-17.5); White Blood Count 7.6 K/mm3 (4.8-10.8)
[2023-07-22 17:23] LABS: Alanine Aminotransferase 22 U/L (12-78); Albumin Level 4.5 g/dl (3.5-5.0); Alkaline Phosphatase 78 U/L (38-126); Anion Gap 11.4 mEq/L (5-15); Aspartate Amino Transferase 26 U/L (17-59); Bilirubin,Total 0.6 mg/dl (0.2-1.3); Blood Urea Nitrogen 11 mg/dl (9-20); Calcium 9.3 mg/dl (8.4-10.2); Carbon Dioxide 30 mmol/L (22.0-30.0); Chloride 102 mmol/L (98-107); Estimated Glomerular Filt Rate 109 ml/min (>60); GFR (African American) 132 ML/MIN (>60); Globulin 2.3 g/dL (1.3-3.2); Glucose 83 mg/dl (74-100); Lipase 197 U/L (23-300); Potassium 4.4 mmoL/L (3.5-5.1); Sodium 139 mmol/L (136-145); Total Protein,Serum 6.8 g/dl (6.3-8.2)
[2023-07-24 08:15] LABS: Immunoglobulin A, Qn 174 mg/dL (90-386)
[2023-07-25 15:09] LABS: Tissue Transglutaminase IgA Ab <2 U/mL (0-3)
== END 2023-07-22 23:59 ==
LOC: LAB 15:39
PROVIDERS: PCP Internal Medicine Adolescent Medicine; Visit Provider Physician Assistant
DX: R10.84 Generalized abdominal pain (principal); R19.7 Diarrhea, unspecified; R63.4 Abnormal weight loss; K52.9 Noninfective gastroenteritis and colitis, unspecified
CPT/HCPCS: 36415; 80053; 82784; 83516; 83690; 85025

== ENCOUNTER 2023-07-23 12:13 | Outpatient (CLI) | payer OTHER, SELFPAY ==
[2023-07-23 12:18] LABS: Adenovirus F 40/41, stool Not Detected (NotDetected); Astrovirus Not Detected (NotDetected); Campylobacter Not Detected (NotDetected); Clostridium Difficile A/B, PCR Not Detected (NotDetected); Cryptosporidium Not Detected (NotDetected); Cyclospora Cayetanesis Not Detected (NotDetected); Entamoeba histolytica Not Detected (NotDetected); Enteroaggregative E coli Not Detected (NotDetected); Enteropathogenic E coli Not Detected (NotDetected); Enterotoxigenic E coli Not Detected (NotDetected); Giardia lamblia Not Detected (NotDetected); Norovirus Not Detected (NotDetected); Plesimonas Shigalloides, PCR Not Detected (NotDetected); Rotavirus A Not Detected (NotDetected); Salmonella, PCR Not Detected (NotDetected); Shiga-like toxin E coli Not Detected (NotDetected); Shigella Enterovasive E coli Not Detected (NotDetected); Vibrio Cholerae Not Detected (NotDetected); Vibrio, PCR Not Detected (NotDetected); Yersinia Entercolitica, PCR Not Detected (NotDetected)
[2023-07-27 04:41] LABS: Sapovirus Detected (NotDetected)
[2023-07-29 16:57] LABS: Lactoferrin, Fecal, Quant. <1.00 ug/mL(g) (0.00-7.24)
== END 2023-07-23 23:59 ==
PROVIDERS: PCP Internal Medicine Adolescent Medicine; Visit Provider Physician Assistant
DX: R19.7 Diarrhea, unspecified (principal); R63.4 Abnormal weight loss; A08.11 Acute gastroenteropathy due to Norwalk agent; R10.84 Generalized abdominal pain
CPT/HCPCS: 83630; 87507

== ENCOUNTER 2023-08-24 14:23 | Emergency (ER) | payer OTHER, SELFPAY ==
[2023-08-24 14:53] VITALS: BP 129/79; PULSE 58; RESP 16; TEMP 36.9; O2SAT 100; BMI 21.7
[2023-08-24 15:02] LABS: UTC Influenza A Antigen Negative (Negative); UTC Influenza B Antigen Positive (Negative)
--- NOTE | 2023-08-24 15:18 | ED_ITS ---
Discharge Plan Disposition Patient Disposition: Home, Self-Care Condition: Good Prescriptions Prescriptions: No Action propranolol 10 MG tablet 10 mg PO BID escitalopram oxalate 20 MG tablet 20 mg PO DAILY Rx Instructions: 1/2 tab daily for 1 wk, then full tab. prednisone 10 mg tablet 10 mg PO BID 3 Days Qty: 6 0RF amoxicillin [amoxicillin] 875 mg tablet 875 mg PO Q12H Qty: 20 0RF Referrals Follow up/Referrals: Charlie Chaparro MD [Primary Care Provider] - See instructions Activity Restrictions/Add. Instructions Additional Instructions/Restrictions: * Too late to start Tamiflu. Most effective when started within 48 hours of symptoms onset * Lots of rest * Increase Fluids water, Gatorade, powerade, pedialyte,if /toddler/child * Alternate Tylenol and / or ibuprofen as discussed for fever, aches, chills Follow up IMMEDIATELY with your family doctor for new or worsening Symptoms OR no noticeable improvement over the next 48-72 hours, 911 for difficulty or breathing * You or your child area contagious until no fever, aches, chills for 24 hours with medication for symptoms * Help Prevent the spread of influenza: * ?Wash your hands often. Use soap and water. Wash your hands after you use the bathroom, change a child's diapers, or sneeze. Wash your hands before you prepare or eat food. Use gel hand cleanser that has 60% alcohol, when soap and water are not available. Do not touch your eyes, nose, or mouth unless you have washed your hands first. * Cover your mouth when you sneeze or cough. Cough into a tissue or the bend of your arm. If you use a tissue, throw it away immediately and wash your hands. * Clean shared items with a germ-killing cleaners. Clean table surfaces, doorknobs, and light switches. Do not share towels, silverware, and dishes with people who are sick. Wash bed sheets, towels, silverware, and dishes with soap and water. * Wear a mask over your mouth and nose if you are sick. The face mask may help protect others from becoming infected with the flu. Wear the mask when in common areas of your home or if you seek care with a healthcare provider. * Stay away from others if you are sick. Stay at home until 24 hours after your fever and symptoms are gone. Clinical Impressions Clinical Impression: Influenza Stand Alone Forms Stand Alone Forms: Work/School Release Instructions Patient Instructions: DI for Influenza -- Adult, Influenza Discharge ED Provider: Galilea Galindo [facility] [place] HPI General Stated complaint: body aches fever congestion Mode of Arrival: Ambulatory Source of Information: Patient Limitations: No Limitations Time Seen by Provider: 08/24/23 15:18 Description of Symptoms (Recalled from Triage Doc. by RN): Patient reports flu like symptoms that started Tuesday. HEENT Symptoms (Recalled from RN notes): Yes Resp Symptoms (Recalled from RN notes): No Skin Symptoms (Recalled from RN notes): No MS Symptoms (Recalled from RN notes): No Functional Status (Recalled from RN notes): wnl History of Present Illness Provider Complaint: Patient states that he started on Tuesday with flu like symptoms States he has been having nasal congestion, body aches, fever and chills States today he was still not feeling any better so he came in to get checked Related Data Home Medications Medication Instructions Recorded Confirmed escitalopram oxalate 20 mg tablet 20 mg PO DAILY Anxiety 09/14/21 02/26/23 propranolol 10 mg tablet 10 mg PO BID FAST HEART RATE 09/14/21 02/26/23 Previous Rx's Medication Instructions Recorded amoxicillin 875 mg tablet 875 mg PO Q12H #20 tabs 02/26/23 prednisone 10 mg tablet 10 mg PO BID 3 days #6 tabs 02/26/23 Allergies Allergy/AdvReac Type Severity Reaction Status Date / Time No Known Allergies Allergy Verified 06/29/22 16:10 Worker's Comp Is this a Worker's Comp case?: No [facility] Disclaimer: The information contained in this section may have been updated after the patient was seen, as this information can be updated by other users. Medical History Anxiety Brain venous angioma Depression Prostate disorder Social History Smoking Status: Current every day smoker tobacco type: cigarettes packs per day: 1 second hand exposure: No alcohol intake: never substance use type: denies use current occupational status: other Travel in the last 8 weeks: None household members: spouse housing: house current occupation: [employer] caffeine: Yes ROS Obtained: Yes All systems reviewed & no additional complaints except as documented and Yes Systems reviewed as appropriate & no additional complaints except as documented Constitutional Constitutional: Reports system reviewed and no additional complaints, except as documented, Reports as per HPI, Reports body ache, Reports chills and Reports fever(s) ENT Ears, Nose, Mouth, and Throat: Reports system reviewed and no additional complaints, except as documented, Reports as per HPI, Reports nasal congestion and Reports nasal discharge Cardiovascular Cardiovascular: Reports system reviewed and no additional complaints, except as documented and Reports as per HPI Respiratory Respiratory: Reports system reviewed and no additional complaints, except as documented and Reports as per HPI Gastrointestinal Gastrointestingal: Reports system reviewed and no additional complaints, except as documented and as per HPI Physical Exam General General appearance: alert and in no apparent distress ENT ENT exam: Present mucous membranes moist Expanded ENT Exam Nose exam: Absent sinus tenderness Throat exam: Present normal inspection Chest Chest inspection: Present normal inspection and symmetric chest wall rise Respiratory Respiratory exam: Present normal lung sounds bilaterally; Absent respiratory distress or wheezes Cardiovascular Cardiovascular exam: Present regular rate, normal rhythm and normal heart sounds Neurological Exam Neurological exam: Present alert, oriented X3 and normal gait Medical Decision Making Noé Inquiry Pt receiving controlled substance: No Noé was queried for this patient: No Vital Signs: 08/24/23 14:53 Temperature 98.4 F Temperature Source Oral Pulse Rate [Radial] 58 L Respiratory Rate 16 Blood Pressure [Right Arm] 129/79 Blood Pressure Mean [Right Arm] 95 Blood Pressure Source [Right Arm] Automatic Cuff Blood Pressure Position [Right Arm] Sitting 02 Sat by Pulse Oximetry 100 Oxygen Delivery Method Room Air Lab Data Lab results reviewed: Yes I reviewed the patient's lab results. Lab Results 08/24/23 14:52: Influenza Type A Ag Negative, Influenza Type B Ag Positive A
[2023-08-24 15:42] VITALS: BP 129/79; PULSE 58; RESP 16; TEMP 36.9; O2SAT 100
== END 2023-08-24 15:43 | disposition home or self-care (01) ==
PROVIDERS: Emergency Provider Nurse Practitioner; PCP Internal Medicine Adolescent Medicine
DX: J10.1 Influenza due to other identified influenza virus with other respiratory manifestations (principal); R50.9 Fever, unspecified; R09.81 Nasal congestion; M79.18 Myalgia, other site; F17.210 Nicotine dependence, cigarettes, uncomplicated
CPT/HCPCS: 87804; 99212; 99214; G0463

== ENCOUNTER 2023-10-11 10:27 | Day surgery (SDC) | payer OTHER, SELFPAY ==
[2023-10-10 09:11] VITALS: BMI 21.7
[2023-10-11] MEDS: LACTATED RINGERS 1000ML 1,000 ML 25 ML IV (10:51)
[2023-10-11 10:53] VITALS: BP 125/71; PULSE 72; RESP 18; TEMP 37; O2SAT 97
--- NOTE | 2023-10-11 11:15 | P.PNANES_ITS ---
[facility] Disclaimer: The information contained in this section may have been updated after the patient was seen, as this information can be updated by other users. Medical History Brain venous angioma Prostate disorder Depression Anxiety Surgical History H/O brain surgery Family History Other Family history of cancer Family history of diabetes mellitus type II Thyroid cancer Social History Smoking Status: Current every day smoker tobacco type: cigarettes packs per day: 1 second hand exposure: No alcohol intake: never substance use type: denies use current occupational status: other Travel in the last 8 weeks: None household members: spouse housing: house current occupation: [employer] caffeine: Yes [facility] Anesthesia Checklist Patient Identification Patient Identification: Arm Band Structural Data Admitted From: Home Planned Operative Procedure/s: EGD/Colonoscopy Consent for Planned Operative Procedure(s) Verified: Yes Verified Documents: Surgical Consent and History and Physical NPO Status Verified Time NPO: 00:00 Additional verifications Anesthesia Reactions: No Airway Assessment Mallampati Score:: Class II C-Spine Mobility Assessed: Yes TMJ Mobility Assessed: Yes Dentition: Good Dentition (Cracked bottom left tooth) Neurological Assessment Level of Consciousness: Awake and Alert Anesthesia Plan Anesthesia Risk discussed: Yes Anesthesia Plan: Verified ASA Class: II Anesthesia Type: MAC
[2023-10-11 11:18] VITALS: O2SAT 97
[2023-10-11 12:05] VITALS: BP 95/58; PULSE 77; RESP 14; TEMP 36.3; O2SAT 93
--- NOTE | 2023-10-11 12:07 | [facility].SCOPE ---
Procedure: Date: 10/11/23 Patient Date of :: 1985 Procedure Performed:: Esophagogastroduodenoscopy with biopsy Colonoscopy with polypectomy Indications:: History of colon polyps Gastroesophageal reflux Epigastric discomfort Diarrhea Abdominal bloating Note: The patient is status post colonoscopy September 2020 at which time moderate spasticity was noted. Hyperplastic polyps at 12cm excised. A prior colonoscopy in May 2020 was somewhat complicated by poor bowel preparation. Large complex pedunculated adenomas at 7 cm, 10 cm, 15 cm, and 20 cm were excised. He was also found to be positive for C. difficile colitis at that time. Performing Provider:: Nakul Perez MD Referring Provider:: . Sedation:: Monitored anesthesia care Procedure:: After informed consent was obtained the patient was taken to the endoscopy suite. Sedation ensued after the patient was transferred to the left lateral decubitus position. Pulse, blood pressure, and oxygen saturation were monitored throughout the procedure. The endoscope was advanced beyond the duodenal bulb. Retroflexion within the gastric lumen was accomplished. The gastroscope was carefully removed. Digital rectal exam revealed no significant abnormality. The colonoscope was placed in position. The entire colon was evaluated. The colonoscope was carefully removed and the patient was transferred to recovery in stable condition. Please see findings and specimens below for detail. Findings:: Gastroesophageal junction at 40 cm Relatively small sliding hiatal hernia Patchy mild gastritis Bowel preparation relatively fair Lack of relaxation Polyps (see specimens Specimens:: Antral biopsy Sessile cecal polyp (cold snare) Partially-pedunculated polyp at 25 cm (hot snare) Recommendations:: Timing of repeat colonoscopy is pending pathology will likely be in 3-5 years secondary to history of polyps (specifically history of polyps noted at young age) -note: This may be deferred to the gastroenterology service Consider gastroenterology consultation secondary to diarrhea/bloating Follow-up pathology Proton pump inhibition Complications:: No immediate Estimated blood obtained (mL): 1 Colonoscopy Component Colonoscopy Component Was a colonoscopy performed during today's procedure?: Yes Recommended follow up colonoscopy of at least 10 years?: No If no, follow up colonoscopy recommended in ___ years?: (See above) Reason for not recommending >/= 10 yr follow-up interval?: (See above)
[2023-10-11 12:15] VITALS: BP 96/62; PULSE 73; RESP 16; O2SAT 95
[2023-10-11 12:25] VITALS: BP 123/53; PULSE 75; RESP 18; O2SAT 95
[2023-10-11 12:30] VITALS: BP 122/59; PULSE 77; RESP 18; O2SAT 97
== END 2023-10-11 12:32 | disposition home or self-care (01) ==
PROVIDERS: PCP Internal Medicine Adolescent Medicine; Visit Provider Surgery
PROC: 0DJ08ZZ Inspection of Upper Intestinal Tract, Via Natural or Artificial Opening Endoscopic (ICD-10-PCS; CPT 43235; principal; 2023-10-11 11:30)
DX: K21.9 Gastro-esophageal reflux disease without esophagitis (principal); R19.7 Diarrhea, unspecified; R14.0 Abdominal distension (gaseous); Z86.010 Personal history of colon polyps; K44.9 Diaphragmatic hernia without obstruction or gangrene; K29.70 Gastritis, unspecified, without bleeding; D12.0 Benign neoplasm of cecum; D12.5 Benign neoplasm of sigmoid colon
CPT/HCPCS: 43239; 45385

== ENCOUNTER 2024-02-02 15:24 | Outpatient (CLI) | payer OTHER, SELFPAY | END 2024-02-02 23:59 | disposition home or self-care (01) | LOC: RAD 15:24 | PROVIDERS: PCP Internal Medicine Adolescent Medicine; Visit Provider Physician Assistant | DX: G93.9 Disorder of brain, unspecified (principal) ==